=== PATIENT | female | born 1945 | race Caucasian/White ===

== ENCOUNTER 2019-06-19 13:49 | Outpatient (RCR) | payer MEDICARE, MEDICAID ==
[~2019-06-19] VITALS: Ht 160 cm; Wt 67.6 kg
[~2019-06-19 13:49] MED LIST: ASPIRIN-LOW81 MG ORAL; CALCIUM + VITA1 EAC2 PO; CREON 10 EC CA249 MG PO; DIOVAN40 MG ORAL; LOVAZA1 GM ORAL; NEXIUM2.5 MG PO; crestor PO; prilosec PO
== END 2019-06-24 | disposition home or self-care (01) ==
LOC: WCC 13:49
DX: L97.813 Non-pressure chronic ulcer of other part of right lower leg with necrosis of muscle (principal); L97.913 Non-pressure chronic ulcer of unspecified part of right lower leg with necrosis of muscle; L03.115 Cellulitis of right lower limb; I10 Essential (primary) hypertension
CPT/HCPCS: 11043; 11044

== ENCOUNTER 2019-10-09 13:32 | Outpatient (RCR) | payer MEDICARE, MEDICAID | END 2019-10-25 | disposition home or self-care (01) | LOC: WCC 13:32 | DX: L97.813 Non-pressure chronic ulcer of other part of right lower leg with necrosis of muscle (principal); L97.911 Non-pressure chronic ulcer of unspecified part of right lower leg limited to breakdown of skin; L03.115 Cellulitis of right lower limb; I10 Essential (primary) hypertension | CPT/HCPCS: 87070; 87181; 87205; G0463 ==

== ENCOUNTER 2020-09-29 05:48 | Day surgery (SDC) | payer MEDICARE, OTHER ==
[2020-09-29] VITALS (8 sets, daily range): BP systolic 123–153; BP diastolic 62–81
[~2020-09-29] VITALS: Ht 165.1 cm; Wt 71.2 kg
--- NOTE | 2020-09-29 06:56 | Anethesia Preoperative Eval ---
Anesthesia Pre-op PMH/ROS General Date of Evaluation: Sep 29, 2020 Time of Evaluation: 06:53 Anesthesiologist: manoj ASA Score: ASA 4 Mallampati Score Class I : Soft palate, uvula, fauces, pillars visible Class II: Soft palate, uvula, fauces visible Class III: Soft palate, base of uvula visible Class IV: Only hard plate visible Mallampati Classification: Class III Surgeon: naz Diagnosis: gerd Surgical Procedure: egd Anesthesia History: none Social History: smoking - former smoker Family History: no anesthesia problems Allergies: Coded Allergies: No Known Allergies (Unverified , 09/14/12) Medications: see eMAR Patient NPO?: Yes Past Medical History Cardiovascular: Reports: HTN, other - hypercholesterolemia Gastrointestinal/Genitourinary: Reports: GERD Endocrine: Reports: hypothyroidism HEENT: Reports: other - decreased visual acuity Hematology/Immune: Reports: anemia, other - covid-19 negative 09/28/2020 Musculoskeletal/Integumentary: Reports: OA Anesthesia Pre-op Phys. Exam Physician Exam Last Vital Signs Date Time Temp Pulse Resp B/P (MAP) Pulse Ox O2 Delivery O2 Flow Rate FiO2 09/29/20 06:38 Room Air 09/29/20 06:38 97.3 57 18 147/72 96 Constitutional: NAD Neurologic: CN 2-12 intact Cardiovascular: other - bradycardia Respiratory: CTA Gastrointestinal: S/NT/ND Airway Exam Mallampati Score: Class II MO: limited Neck: flexible TMD: 2fb ROM: limited Teeth: missing Dentures: lower Anesthesia Pre-op A/P Labs Microbiology Date/Time Source Procedure Growth Status 09/28/20 09:00 Nasopharynx SARS-CoV-2 RdRp Gene Assay - Final Complete Risk Assessment & Plan Assessment: asa4 Plan: mac Status Change Before Surgery: No Pre-Antibiotics Drug: Quyen Arredondo MD Sep 29, 2020 06:56
[2020-09-29] MEDS ORDERED: DiphenhydrAMINE 50mg/ml Inj IVP PRN (07:00)
[2020-09-29] MEDS ORDERED: Atropine Inj 1mg/10ml Syr IVP PRN (07:00)
[2020-09-29] MEDS ORDERED: LR 1000ml 1,000 ML IVLG SCH ×2 (07:00)
[2020-09-29] MEDS ORDERED: Midazolam 2mg/2ml Inj IVP PRN (07:00)
[2020-09-29] MEDS ORDERED: fentaNYL 100 mcg/2 mL IV PRN (07:00)
--- NOTE | 2020-09-29 07:05 | Short Stay Surgery H&P ---
History of Present Illness History of Present Illness Chief Complaint constipation, history of gastric cancer(Maltoma) for follow up/GERDs HPI Pamela Bess is a 75 year old female who was admitted on for GERD/history of gastric cancer and constipation Patient History Allergies: Coded Allergies: No Known Allergies (Unverified , 09/14/12) PAST MEDICAL HISTORY: (1) History of partial gastrectomy (2) Hypertension (3) Hyperlipidemia Relevant Family History: Patient reports no known family medical history. Medication History Scheduled Calcium Carb & Cit/Vitamin D3 (Calcium + Vitamin D3 Caplet), 1 EACH PO DAILY, (Reported) Frohna-3 Acid Ethyl Esters (Lovaza), 1 GM ORAL DAILY, (Reported) Valsartan (Diovan), 40 MG ORAL DAILY, (Reported) [crestor], 1 TAB PO DAILY, (Reported) [prilosec], 1 CAP PO DAILY, (Reported) Discontinued Medications Aspirin (Aspirin EC), 81 MG ORAL DAILY, (Reported) Discontinued Reason: Pt stopped taking med Review of Systems Cardiovascular: Reports: hypertension Respiratory: Reports: no symptoms Skeletal: Reports: no symptoms Gastrointestinal: Reports: gastro esophageal reflux disease Genitourinary: Reports: no symptoms Neurologic: Reports: no symptoms Endocrine: Reports: no symptoms Hematologic: Reports: no symptoms Physical Exam Vital Signs Last Vital Signs Date Time Temp Pulse Resp B/P (MAP) Pulse Ox O2 Delivery O2 Flow Rate FiO2 09/29/20 06:38 Room Air 09/29/20 06:38 97.3 57 18 147/72 96 Skin: normal HENT: normal Heart: normal Lungs: normal Abdomen: normal Extremities: normal Genitourinary: normal Plan Plan of Care Upper and lower Endoscopy with obtaining biopsies as needed. Preop Interventions None. Summary of Findings See the reports. Attestation Are the patient's medical conditions optimized for surgery? Attestation Response: yes Brad Roesn MD Sep 29, 2020 07:05
--- NOTE | 2020-09-29 07:07 | Pre-Procedure Note/Attestation ---
Pre-Procedure Note/Attestation Complete Prior to Procedure Planned Procedure: left Procedure Narrative: Examination of the upper and the lower GI tract via endoscopy. Indications for Procedure Pre-Operative Diagnosis: R/O recurrent gastric CA/hemorrhoids/colon CA Attestation I attest that I discussed the nature of the procedure; its benefits; risks and complications; and alternatives (and the risks and benefits of such alternatives), prior to the procedure, with the patient (or the patient's legal direct sales representative). I attest that, if there was a reasonable possibility of needing a blood transfusion, the patient (or the patient's legal direct sales representative) was given the [facility] standardized written summary, pursuant to the [place] Blood Safety Act ([place] Health and Safety Code # 1645, as amended). I attest that I re-evaluated the patient just prior to the surgery and that there has been no change in the patient's H&P, except as documented below: Brad Rosen MD Sep 29, 2020 07:07
--- NOTE | 2020-09-29 07:08 | Discharge Instructions ---
Discharge Instructions Discharge Instructions Follow up with: See the doctor in office after 2 weeks. For Congestive Heart Failure Reminder Report to your physician any weight gain of 5 pounds or more in one week. Brad Rosen MD Sep 29, 2020 07:08
[2020-09-29] MEDS ORDERED: NS Irrig 3000ml IRRIG ONE (07:30)
[2020-09-29] MEDS ORDERED: Lidocaine 1% MPF 10mg/ml 5ml ONE (07:30)
[2020-09-29] MEDS ORDERED: LR 1000ml ONE (07:30)
--- NOTE | 2020-09-29 08:09 | Endoscopy Procedure Note ---
Endoscopy Procedure Note General Indication for Procedure: History of gastric cancer/Maltoma Procedures Performed: EGD - Completely normal upper GI. endoscopy, biopsies obtained from gastric tissues in 2 locations per random. Specimen: yes Pt Tolerated Procedure Well: Yes Estimated Blood Loss: none Anesthesia Anesthesiologist: Dr. Laughlin Anesthesia: moderate sedation Medications Medication Given: see anesthesia record Inserted Devices Implant(s) used?: No Quality Quality of Bowel Preparation: Excellent Was there any complications?: No GI Core Measures 50 yrs or older w/o bx or poly: Not Applicable 10yrs. F/U recommended: Not Applicable If not recommended, why?: Med reason:<3 yrs.: System Reason:<3 yrs.: Brad Rosen MD Sep 29, 2020 08:09
--- NOTE | 2020-09-29 08:44 | Endoscopy Procedure Note ---
Endoscopy Procedure Note General Indication for Procedure: Constpation, history of hemorrhoid. Procedures Performed: colonoscopy - Minimal internal hemorrhoids, 5 mm very thin and flat polypoid type of tissue biopsied and totally removed at 65 CM from anal area., looking begnin. Specimen: yes Anesthesia Anesthesiologist: Dr. Laughlin Anesthesia: moderate sedation Medications Medication Given: see anesthesia record Inserted Devices Implant(s) used?: No Quality Quality of Bowel Preparation: Excellent Did scope reach the cecum?: Yes Was there any complications?: No GI Core Measures 50 yrs or older w/o bx or poly: Yes 10yrs. F/U recommended: Yes <3yrs. since last colonoscopy: No Last colonoscopy >= to 3yrs: Yes Brad Rosen MD Sep 29, 2020 08:44
--- NOTE | 2020-09-29 09:01 | Immediate Post-Op Evaluation ---
Immediate Post-Op Evalulation Immediate Post-Op Evalulation Procedure: egd/colonoscopy w/bx Date of Evaluation: Sep 29, 2020 Time of Evaluation: 09:00 IV Fluids: 450ml lr Blood Products: none Estimated Blood Loss: negligible Blood Pressure Systolic: 123 Blood Pressure Diastolic: 62 Pulse Rate: 60 Respiratory Rate: 18 O2 Sat by Pulse Oximetry: 100 Temperature (Fahrenheit): 96.8 Pain Score (1-10): 0 Nausea: No Vomiting: No Complications none Patient Status: awake, reacts, patent Hydration Status: adequate Drug: Quyen Arredondo MD Sep 29, 2020 09:01
--- NOTE | 2020-09-29 09:02 | 48 Hour Post Anesthesia Eval ---
Post Anesthesia Evaluation Procedure: egd/colonoscopy w/bx Date of Evaluation: Sep 29, 2020 Time of Evaluation: 09:02 Blood Pressure Systolic: 131 0: 73 Pulse Rate: 55 Respiratory Rate: 18 Temperature (Fahrenheit): 96.8 O2 Sat by Pulse Oximetry: 100 Airway: patent Nausea: No Vomiting: No Pain Intensity: 0 Hydration Status: adequate Cardiopulmonary Status: stable Mental Status/LOC: patient returned to baseline Post-Anesthesia Complications: none Follow-up care needed: N/A Quyen Laughlin MD Sep 29, 2020 09:02
--- NOTE | 2020-09-29 09:14 | Operative Note - Dictated ---
DATE OF OPERATION: 09/29/2020 SURGEON: Brad Rosen MD PROCEDURE: Esophagogastroduodenoscopy with biopsy. PREOPERATIVE DIAGNOSES: History of gastric cancer/MALToma, GERD, rule out recurrence of gastric cancer. POSTOPERATIVE DIAGNOSIS: Completely normal upper GI endoscopy. Biopsy was taken per random from 2 locations in the stomach. MEDICATIONS: Used per Dr. Tello, anesthesiologist. INSTRUMENT: GIF Olympus upper GI video endoscope. DESCRIPTION OF PROCEDURE: Patient after arriving at the endoscopy unit, was told about risks and benefits of the procedure, which she accepted and signed informed consent. At this time, she was put in the left lateral decubitus position. After adequate IV sedation, the scope was gently passed through the cricopharyngeal area, was lodged into the upper esophagus and gradually advanced towards the gastroesophageal junction. The entire length of the esophagus was completely normal without any pathology. GE junction also looked completely normal. No evidence of hiatal hernia or Jimenez's noted. At this time, the scope was advanced into the stomach. Gastric cavity was distended with insufflation of air and gradually the areas of the fundus and the body and the antrum were examined closely, which revealed normal finding without any mucosal changes or polyps or tumors etc. At this point, one random biopsy from the gastric body and the other one from the antral area was obtained and subsequently scope was passed through the pylorus. First and second portion of duodenum were also found to be completely normal. Finally, scope was pulled out and the procedure was terminated. Patient tolerated the procedure well and left the endoscopy room in a good condition. Brad Rosen M.D. DR: CAMPOS JOB#: [id number] CC:
--- NOTE | 2020-09-29 09:59 | Procedure Note ---
DATE OF PROCEDURE: 09/29/2020 SURGEON: Brad Rosen MD. PROCEDURE: Total colonoscopy with polypectomy. PREOPERATIVE DIAGNOSES: Constipation and history of hemorrhoids. POSTOPERATIVE DIAGNOSIS: Minimal internal hemorrhoid and a 5 mm very flat thin polypoid lesion located over the 65 cm from the anal area which was totally removed by biopsy forceps looked benign. MEDICATION USED: Per Dr. Tello, anesthesiologist. INSTRUMENT: GIF Olympus video colonoscope. DESCRIPTION OF PROCEDURE: The patient after arriving endoscopy unit, was told about risks and benefits of the procedure which she accepted and signed informed consent. She was then put on the left lateral decubitus position. After adequate IV sedation, the scope was gently passed through the anal area which revealed a very minimal internal hemorrhoid without bleeding. A retroflexion maneuver was also applied in the anal area which revealed normal finding and no evidence of polyps or tumors noted. At this time, the scope was gradually passed through the left colon reaching towards the mid descending colon at the level of 65 cm from the anal area. There was incidental finding of very thin mucous like polypoid lesion which looked completely benign lesion. It was grabbed with cold biopsy forceps in two occasions and removed totally and sent to the pathology lab as a specimen. Subsequently, the scope was passed through the left descending colon all the way to the splenic flexure and from there it was guided into the transverse colon, hepatic flexure, and finally reached towards the base of the cecum. All these areas remained to be completely normal without any pathological finding such as tumors, polyps, or colitis, etc. The colon cleanup was excellent. At this point, upon reaching towards the cecal area within 7 minutes the scope was gradually pulled out and the procedure was terminated and there was no other findings. The patient tolerated the procedure well and left the endoscopy room in a good condition. Brad Rosen M.D. DR: Nicole JOB#: [id number] CC:
== END 2020-09-29 10:03 | disposition home or self-care (01) ==
LOC: GAS 05:48
DX: K21.9 Gastro-esophageal reflux disease without esophagitis (principal); K64.8 Other hemorrhoids; K59.00 Constipation, unspecified; E78.5 Hyperlipidemia, unspecified; I10 Essential (primary) hypertension; Z90.49 Acquired absence of other specified parts of digestive tract; Z85.00 Personal history of malignant neoplasm of unspecified digestive organ
CPT/HCPCS: 43239; 45380; 94003; J2704; J7120; U0002; 94150